=== PATIENT | male | born 1940 | race Caucasian/White ===

== ENCOUNTER 2017-03-29 09:35 | Outpatient (CLI) | payer MEDICARE, OTHER ==
--- NOTE | 2017-03-29 12:57 | XRAY Report ---
DATE OF SERVICE: 03/29/2017 THREE VIEW RIGHT SHOULDER: 03/29/2017 CLINICAL INDICATION: Lateral pain. FINDINGS: Internal and external rotational views and a scapular Y view of the right shoulder demonstrate no evidence of fracture or dislocation. The joint spaces are preserved. No radiopaque foreign body is seen in the soft tissues. IMPRESSION: NORMAL RIGHT SHOULDER. TD: 03/29/2017 13:55
== END 2017-03-29 09:36 | disposition home or self-care (01) ==
LOC: DI 09:35
PROVIDERS: ATTEND Family Medicine
DX: M25.511 Pain in right shoulder (principal)

== ENCOUNTER 2017-04-06 14:42 | Outpatient (CLI) | payer MEDICARE, OTHER ==
--- NOTE | 2017-04-06 20:29 | MRI Report ---
EXAM: RIGHT SHOULDER MRI WITHOUT CONTRAST EXAM DATE: 04/06/2017 03:24 PM. CLINICAL HISTORY: Lifting injury 4 mo ago, no improvement. COMPARISON: None. TECHNIQUE: Multiplanar, multisequence T1-weighted and fluid-sensitive sequences of the shoulder witho ut contrast. Other: None. FINDINGS: Acromioclavicular Region: The acromion is type II. AC joint is moderate to severely arthritic. Small AC joint effusion. The coracoacromial and coracoclavicular ligaments are intact. Trace amount of burs al fluid. Glenohumeral Region: No subluxation. No effusion or loose bodies. The articular cartilage is unremark able. The glenohumeral ligaments and joint capsule are unremarkable. Bone Marrow: No fracture, marrow edema or bone lesions. Labrum: There is a prominent Jeanette variant, no labral pathology. Musculature/Rotator Cuff: Undersurface partial thickness tear distal supraspinatus involves about 90% of the overall tendon thickness. This is about 12 x 12 mm from front to back and side to side. There is also a second area of undersurface partial thickness tearing of the anterior fibers of the supras pinatus involving about 50% of the undersurface thickness, measuring about 6 x 7 mm. No proximal musc ular edema or fatty atrophy. Biceps Tendon: Long head of the biceps tendon is perched at the medial border of the superior aspect of the bicipital groove. Some type I signal change is noted. No vertical split or full-thickness flui d-filled gaps. Other: The subcutaneous tissues are unremarkable. IMPRESSION: 1. Type II unipartite undersurface osseous acromion shape. AC joint is moderately to severely arthrit ic. Small AC joint effusion. Trace amount of bursal fluid. 2. Prominent Jeanette variant, no labral pathology. 3. Undersurface partial-thickness tear involves about 90% of the mid portion of the supraspinatus ten don thickness. Also of note, there is a second area of undersurface partial-thickness tearing involvi ng about 50% of the undersurface distal anterior attachment. Remainder the rotator cuff appears other becerra unremarkable. No proximal muscular edema or fatty atrophy. 4. Long head of biceps tendon is perched at the medial border of the bicipital groove with some type I signal. [facility] MUSCULOSKELETAL RADIOLOGY SECTION Referring Provider Line: [phone] SITE ID: [id number]
== END 2017-04-06 14:43 | disposition home or self-care (01) ==
LOC: DI 14:42
PROVIDERS: ATTEND Family Medicine
DX: M75.101 Unspecified rotator cuff tear or rupture of right shoulder, not specified as traumatic (principal); M19.011 Primary osteoarthritis, right shoulder; M25.411 Effusion, right shoulder

== ENCOUNTER 2017-10-18 08:19 | Outpatient (CLI) | payer MEDICARE, OTHER ==
[2017-10-18 12:00] LABS: ALBUMIN 4.4 g/dL (3.2-5.5); ALBUMIN/GLOBULIN RATIO 1.4 (1.0-2.2); ALKALINE PHOSPHATASE 53 IU/L (42-121); ALT ALANINE AMINOTRANSFERASE 24 IU/L (10-60); AMYLASE 62 U/L (28-100); AST ASPARTATE AMINOTRANSFERASE 22 IU/L (10-42); BILIRUBIN,TOTAL 0.8 mg/dL (0.2-1.0); BUN - BLOOD UREA NITROGEN 21 mg/dL (6-20); CALCIUM 9.5 mg/dL (8.5-10.3); CARBON DIOXIDE - CO2 29 mmol/L (21-32); CHLORIDE 105 mmol/L (101-111); CREATININE 0.9 mg/dL (0.6-1.2); GFR - MDRD 82 (>89); GLUCOSE 118 mg/dL (70-100); SODIUM 139 mmol/L (135-145); TOTAL PROTEIN 7.5 g/dL (6.7-8.2)
[2017-10-18 12:58] LABS: CRP - C-REACTIVE PROTEIN < 1.0 mg/dL (0-1.0)
== END 2017-10-18 08:20 | disposition home or self-care (01) ==
LOC: LAB.F 08:19
PROVIDERS: ATTEND Family Medicine
DX: E03.9 Hypothyroidism, unspecified (principal); R63.4 Abnormal weight loss
CPT/HCPCS: 36415; 80053; 82150; 83615; 86140; G0103; 84153

== ENCOUNTER 2017-10-19 06:11 | Outpatient (CLI) | payer MEDICARE, OTHER ==
[2017-10-19] MEDS ORDERED: IOPAMIDOL-300 100 ML VIAL ONE (06:17)
[2017-10-19] MEDS ORDERED: IOPAMIDOL-300 50 ML VIAL ONE (06:18)
[2017-10-19] MEDS ORDERED: IOPAMIDOL-300 100 ML VIAL IVP ONE (10:46)
[2017-10-19] MEDS ORDERED: IOPAMIDOL-300 50 ML VIAL PO ONE (10:46)
--- NOTE | 2017-10-19 14:40 | CT Report ---
Procedure Date: 10/19/2017 Accession Number: [id number] / [id number] Procedure: CT - Abdomen/Pelvis W/ CPT Code: FULL RESULT: EXAM: CT ABDOMEN AND PELVIS EXAM DATE: 10/19/2017 07:49 AM. CLINICAL HISTORY: UNSPECIFIED ABDOMINAL PAIN,ABNORMAL WEIGHT LOSS. COMPARISONS: None. TECHNIQUE: Routine helical CT imaging was performed through the abdomen and pelvis. IV contrast: ISOVUE 300 100mL. Enteric contrast: No. Reconstructions: Coronal and sagittal. In accordance with CT protocol optimization, one or more of the following dose reduction techniques were utilized for this exam: automated exposure control, adjustment of mA and/or KV based on patient size, or use of iterative reconstructive technique. FINDINGS: Lung Bases: Unremarkable. Liver: Scattered subcentimeter low-attenuation lesions, too small to accurately characterize, most likely cysts. No masses. Gallbladder/Bile Ducts: Unremarkable. Spleen: Normal. Pancreas: Normal. Adrenal Glands: Unremarkable Kidneys: no masses or hydronephrosis. Peritoneal Cavity/Bowel: no free fluid, free air or adenopathy. No masses or acute inflammatory process. Minor sigmoid diverticulosis without diverticulitis. Pelvic Organs: the bladder is unremarkable. Prostate is prominent in size with elevation of the bladder base. Vasculature: No aneurysms or other significant abnormality. Bones: No significant abnormality. Degenerative change. Other: None. IMPRESSION: 1. Prominent prostate 2. Diverticulosis without diverticulitis 3. Negative solid abdominal viscera. 4. No explanation for weight loss seen.
== END 2017-10-19 06:12 | disposition home or self-care (01) ==
LOC: DI 06:11
PROVIDERS: ATTEND Family Medicine
DX: R10.9 Unspecified abdominal pain (principal); R63.4 Abnormal weight loss
CPT/HCPCS: 74177; Q9967

== ENCOUNTER 2019-05-10 07:03 | Outpatient (CLI) | payer MEDICARE, OTHER ==
[2019-05-10 11:37] LABS: ALBUMIN 4.3 g/dL (3.2-5.5); ALBUMIN/GLOBULIN RATIO 1.3 (1.0-2.2); ALKALINE PHOSPHATASE 55 IU/L (42-121); ALT ALANINE AMINOTRANSFERASE 24 IU/L (10-60); AST ASPARTATE AMINOTRANSFERASE 23 IU/L (10-42); BILIRUBIN,TOTAL 0.8 mg/dL (0.2-1.0); BUN - BLOOD UREA NITROGEN 19 mg/dL (6-20); CALCIUM 9.1 mg/dL (8.5-10.3); CARBON DIOXIDE - CO2 28 mmol/L (21-32); CHLORIDE 102 mmol/L (101-111); CHOL/HDL RATIO 3.3 (<5.0); CHOLESTEROL 194 mg/dL; CREATININE 0.8 mg/dL (0.6-1.2); GFR - MDRD 94 (>89); GLUCOSE 113 mg/dL (70-100); HDL CHOLESTEROL 58 mg/dL; LDL CHOLESTEROL,CALCULATED 123 mg/dL; LDL/HDL RATIO 2.1 (<3.6); SODIUM 136 mmol/L (135-145); TOTAL PROTEIN 7.5 g/dL (6.7-8.2); VLDL CHOLESTEROL 13 mg/dL
[2019-05-10 11:42] LABS: CREATININE,URINE 87.7 mg/dL; MICROALBUM/CREATININE RATIO,UR 2.3 ug/mg (<30.0); MICROALBUMIN,URINE 0.2 mg/dL (0-300.0)
[2019-05-10 11:43] LABS: HB2 TOTAL 15.1 g/dL; HEMOGLOBIN A1C 0.59 g/dL; HEMOGLOBIN A1C % 5.7 % (4.6-6.2)
== END 2019-05-10 07:04 | disposition home or self-care (01) ==
LOC: LAB.S 07:03
PROVIDERS: ATTEND Family Medicine
DX: E11.9 Type 2 diabetes mellitus without complications (principal); E78.5 Hyperlipidemia, unspecified; E03.9 Hypothyroidism, unspecified
CPT/HCPCS: 36415; 80053; 80061; 82043; 82570; 83036; 83721; 84443

== ENCOUNTER 2022-05-23 10:21 | Emergency (ER) | payer MEDICARE, OTHER ==
--- NOTE | 2022-05-23 11:48 | ED Physician Documentation ---
PD HPI MALE - Stated complaint Stated Complaint: MALE - Chief complaint Chief Complaint: Abd Pain - History obtained from History obtained from: Patient, EMS - Additional information Additional information: Pt comes to the ED for CC of decreased urination. He is POD#3 after TURP at , and has been doing well. He was discharged yesterday, and urinated several times, but noticed his urination decrease over the course of the evening, and has not urinated more than a dribble overnight, despite drinking water. He denies any abdominal discomfort. He states he does not really have the urge to go. The pt states he called his urologist, who told him to come get checked out, and if needed, place an 18-Fr [place] and follow up with urologist tomorrow. Pt states that for some reason, since getting here, he has had the urge to urinate, and has been able to go. Nurse reports initial bladder scan of 375 cc. Pt is otherwise feeling well. No N/V, F/C. PD PAST MEDICAL HISTORY - Allergies Allergies/Adverse Reactions: Allergies Allergy/AdvReac Type Severity Reaction Status Date / Time No Known Drug Allergies Allergy Verified 05/23/22 10:28 PD ED PE NORMAL - Vitals Vital signs reviewed: Yes - General General: Alert and oriented X 3, No acute distress, Well developed/nourished - HEENT HEENT: Atraumatic, PERRL, EOMI, Moist mucous membranes - Neck Neck: Supple, no meningeal sign - Respiratory Respiratory: No respiratory distress - Abdomen Abdomen: Soft, Non tender, Non distended - Derm Derm: Normal color, Warm and dry, No rash - Extremities Extremities: No deformity - Neuro Neuro: Alert and oriented X 3 - Psych Psych: Normal mood, Normal affect Results - Vitals Vitals: Oxygen O2 Source Room air PD Medical Decision Making - ED course Complexity details: reviewed results, re-evaluated patient, considered differential, d/w patient ED course: The pt's repeat bladder scan after urinating the first time showed less than 200cc in the bladder, and pt was able to urinate several more times in the ED. He denied dysuria. The pt opted not have the catheter put in at this time, with the understanding that if he retains urine again to the point of discomfort, he will need to come back in and be re-evaluated. The pt is agreeable to this plan. Departure - Departure Disposition: 01 Home, Self Care Clinical Impression: Postoperative urinary retention Condition: Stable Instructions: ED Retention Urinary Male Comments: You had 375 mL of urine in your bladder to start with, and now, you are down to about 100. Since you are able to urinate repeatedly in the emergency department, the catheter does not necessarily need to be placed at this time. However, if you begin having increasing discomfort and are unable to urinate, then you will need to come back for reevaluation and probably have the catheter placed. Please be sure you are drinking 8 to 10 cups of water every day to help flush your bladder and ureter. Please follow-up with your urologist as scheduled. Discharge Date/Time: 05/23/22 12:02
[2022-05-23 12:02] VITALS: BP 148/87
== END 2022-05-23 12:02 | disposition home or self-care (01) ==
LOC: ED 10:21
DX: N99.89 Other postprocedural complications and disorders of genitourinary system (principal); R33.8 Other retention of urine
CPT/HCPCS: 51798; 99281; 99283

== ENCOUNTER 2022-06-03 13:58 | Emergency (ER) | payer MEDICARE, OTHER ==
[2022-06-03 14:11] VITALS: BP 150/87
--- NOTE | 2022-06-03 14:54 | ED Physician Documentation ---
History of Present Illness - Stated complaint Stated Complaint: MALE - Chief complaint Chief Complaint: Abd Pain - History obtained from History obtained from: Patient - History of Present Illness Timing: Today Pain level max: 0 Pain level now: 0 - Additonal information Additional information: 82-year-old male who presents to the emergency department stating that he had a TURP performed 2 weeks ago. He states decreased urine output today. He does not have any abdominal or pelvic pain. Does not feel the urge to urinate. He is concerned about potential obstruction. No fevers. No chills. 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) - Allergies Allergies/Adverse Reactions: Allergies Allergy/AdvReac Type Severity Reaction Status Date / Time No Known Drug Allergies Allergy Verified 06/03/22 14:11 - Living Situation Living Situation: reports: With family Living Arrangement: reports: At home PD ED PE NORMAL - Vitals Vital signs reviewed: Yes - General General: Alert and oriented X 3, No acute distress - HEENT HEENT: Moist mucous membranes - Neck Neck: Supple, no meningeal sign - Cardiac Cardiac: RRR - Respiratory Respiratory: No respiratory distress, Clear bilaterally - Abdomen Abdomen: Soft, Non tender, Non distended - Derm Derm: Warm and dry - Neuro Neuro: Alert and oriented X 3 Results - Vitals Vitals: Vital Signs - 24 hr 06/03/22 14:08 Temperature 36.6 C Heart Rate 82 Respiratory 16 Rate Blood Pressure 150/87 H O2 Saturation 98 Oxygen O2 Source Room air PD Medical Decision Making - ED course Complexity details: considered differential, d/w patient ED course: Patient is able to void in the emergency department. Postvoid residual is minimal. No evidence of obstruction. Not having any symptoms consistent with infection. We will have him follow-up with his urologist for further care. Patient counseled regarding signs and symptoms for which I believe and urgent re-evaluation would be necessary. Patient with good understanding of and agreement to plan and is comfortable going home at this time This document was made in part using voice recognition software. While efforts are made to proofread this document, sound alike and grammatical errors may occur. Departure - Departure Disposition: Home, Self Care Clinical Impression: Encounter for medical screening examination Condition: Good Instructions: TURP, TURP Home Recover Follow-Up: your,doctor in 1 week [Other] Comments: There is no evidence of bladder obstruction today. Please continue to drink water at home and follow-up with your urologist. Return if you worsen Discharge Date/Time: 06/03/22 15:09
== END 2022-06-03 15:09 | disposition home or self-care (01) ==
LOC: ED 13:58
DX: R33.9 Retention of urine, unspecified (principal)
CPT/HCPCS: 51798; 99282; 99283

== ENCOUNTER 2022-11-15 07:29 | Outpatient (CLI) | payer MEDICARE, OTHER ==
[2022-11-15 07:55] LABS: ALBUMIN 4.3 g/dL (3.2-5.5); ALBUMIN/GLOBULIN RATIO 1.4 (1.0-2.2); ALKALINE PHOSPHATASE 59 IU/L (42-121); ALT ALANINE AMINOTRANSFERASE 16 IU/L (10-60); AST ASPARTATE AMINOTRANSFERASE 16 IU/L (10-42); BILIRUBIN,TOTAL 0.7 mg/dL (0.2-1.0); BUN - BLOOD UREA NITROGEN 20 mg/dL (6-20); CALCIUM 9.7 mg/dL (8.5-10.3); CARBON DIOXIDE - CO2 29 mmol/L (21-32); CHLORIDE 106 mmol/L (101-111); CHOL/HDL RATIO 2.6 (<5.0); CHOLESTEROL 156 mg/dL; CREATININE 0.9 mg/dL (0.6-1.3); GFR - MDRD 81 (>89); GLUCOSE 120 mg/dL (74-104); HDL CHOLESTEROL 60 mg/dL; LDL CHOLESTEROL,CALCULATED 80 mg/dL; LDL/HDL RATIO 1.3 (<3.6); POTASSIUM 4.1 mmol/L (3.5-4.5); SODIUM 139 mmol/L (135-145); TOTAL PROTEIN 7.3 g/dL (6.4-8.9); TRIGLYCERIDES 79 mg/dL (48-352); VLDL CHOLESTEROL 16 mg/dL
[2022-11-15 08:08] LABS: THYROID STIMULATING HORMONE 1.48 uIU/mL (0.34-5.60)
[2022-11-15 11:14] LABS: ESTIMATED AVERAGE GLUCOSE 114 mg/dL (70-100); HEMOGLOBIN A1c% 5.6 % (4.27-6.07)
== END 2022-11-15 07:30 | disposition home or self-care (01) ==
LOC: LAB 07:29
PROVIDERS: ATTEND Family Medicine
DX: E03.9 Hypothyroidism, unspecified (principal); R73.03 Prediabetes
CPT/HCPCS: 36415; 80053; 80061; 83036; 83721; 84443

== ENCOUNTER 2023-05-09 10:31 | Emergency (ER) | payer MEDICARE, OTHER ==
[2023-05-09 10:42] VITALS: BP 163/98; O2SAT 98
[2023-05-09 11:00] LABS: BILIRUBIN,URINE NEGATIVE (NEGATIVE); GLUCOSE, URINE (UA) NEGATIVE (NEGATIVE); KETONES,URINE (UA) NEGATIVE (NEGATIVE); LEUKOCYTE ESTERASE, URINE NEGATIVE (NEGATIVE); NITRITE,URINE NEGATIVE (NEGATIVE); OCCULT BLOOD,URINE NEGATIVE (NEGATIVE); PROTEIN,URINE NEGATIVE (NEGATIVE); UROBILINOGEN,URINE 0.2 (NORMAL) E.U./dL (NORMAL)
[2023-05-09 11:02] LABS: CLARITY,URINE CLEAR (CLEAR)
--- NOTE | 2023-05-09 12:13 | ED Physician Documentation ---
History of Present Illness - Stated complaint Stated Complaint: - Chief complaint Chief Complaint: UTI - Additonal information Additional information: 83-year-old male with history of recent TURP at [facility] presents emergency department for very mild dull aching sensation that he is experiencing when voiding. He denies any abdominal pain no CVA tenderness no fevers or chills he says it is hard to describe there is no dysuria no burning sensation when he voids he says the way he would describe it is a pressure sensation and on a scale of 1-10 he would describe it as about a 2. He said he just wanted to have his urine checked to make sure it was not infection. 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) - Present Medications Home Medications: Ambulatory Orders Medication Instructions Recorded Confirmed Atorvastatin [Lipitor] 10 mg PO DAILY 05/09/23 05/09/23 Levothyroxine [Synthroid] 100 mcg PO QDAC 05/09/23 05/09/23 metFORMIN [Glucophage] 500 mg PO DAILY 05/09/23 05/09/23 - Allergies Allergies/Adverse Reactions: Allergies Allergy/AdvReac Type Severity Reaction Status Date / Time No Known Drug Allergies Allergy Verified 05/09/23 10:42 - Social History Does the pt smoke?: No Smoking Status: Never smoker Does the pt drink ETOH?: No Does the pt have substance abuse?: No - Immunizations Immunizations are current?: Yes - POLST Patient has POLST: No PD ED PE NORMAL - Vitals Vital signs reviewed: Yes - General General: Alert and oriented X 3, No acute distress - Abdomen Abdomen: Normal bowel sounds, Soft, Non tender, Non distended, No organomegaly - Back Back: No CVA TTP - Derm Derm: Normal color, Warm and dry, No rash Results - Vitals Vitals: Vital Signs - 24 hr 05/09/23 10:38 Temperature 35.9 C L Heart Rate 63 Respiratory 20 Rate Blood Pressure 163/98 H O2 Saturation 98 Oxygen O2 Source Room air - Labs Labs: Laboratory Tests 05/09/23 10:51 Urine Color LIGHT YELLOW Urine Clarity CLEAR Urine pH 6.0 Ur Specific [place] <=1.005 Urine Protein NEGATIVE Urine Glucose (UA) NEGATIVE Urine Ketones NEGATIVE Urine Occult Blood NEGATIVE Urine Nitrite NEGATIVE Urine Bilirubin NEGATIVE Urine Urobilinogen 0.2 (NORMAL) Ur Leukocyte Esterase NEGATIVE Ur Microscopic Review NOT INDICATED Urine Culture Comments NOT INDICATED PD Medical Decision Making - ED course ED course: Urinalysis was complete he has no leukocytes no nitrates overall very unremark able urinalysis. Patient said that he is reassured from this and declined any further workup medication at this time. I agree I do not believe that there is any further workup that is indicated he was told to follow-up with his urologist with [facility] for further evaluation if the symptoms do not resolve and he was given ER return precautions. Departure - Departure Disposition: 01 Home, Self Care Clinical Impression: Urinary dysfunction Instructions: ED UTI Cystitis Male Comments: We have completed a urinalysis and there are no signs and symptoms of infection at this time. If you continue to have this discomfort I would encourage you to reach out to your urologist with [facility] for further evaluation. if you start to notice any fevers or chills any burning sensation abdominal pain or flank pain please come back to the emergency department for further evaluation. Discharge Date/Time: 05/09/23 12:42
== END 2023-05-09 12:42 | disposition home or self-care (01) ==
LOC: ED 10:31
DX: R30.0 Dysuria (principal); E11.9 Type 2 diabetes mellitus without complications; E03.9 Hypothyroidism, unspecified; E78.00 Pure hypercholesterolemia, unspecified; Z79.84 Long term (current) use of oral hypoglycemic drugs; Z79.899 Other long term (current) drug therapy
CPT/HCPCS: 51798; 81001; 81003; 87086; 99283

== ENCOUNTER 2023-11-16 07:27 | Outpatient (CLI) | payer MEDICARE, OTHER ==
[2023-11-16 08:03] LABS: CHOL/HDL RATIO 2.6 (<5.0); CHOLESTEROL 164 mg/dL; HDL CHOLESTEROL 64 mg/dL; LDL CHOLESTEROL,CALCULATED 82 mg/dL; LDL/HDL RATIO 1.3 (<3.6); TRIGLYCERIDES 91 mg/dL; VLDL CHOLESTEROL 18 mg/dL
[2023-11-16 08:14] LABS: THYROID STIMULATING HORMONE 1.58 uIU/mL (0.34-5.60)
[2023-11-16 08:18] LABS: ALBUMIN 4.2 g/dL (3.2-5.5); ALBUMIN/GLOBULIN RATIO 1.6 (1.0-2.2); ALKALINE PHOSPHATASE 54 IU/L (42-121); ALT ALANINE AMINOTRANSFERASE 15 IU/L (10-60); AST ASPARTATE AMINOTRANSFERASE 14 IU/L (10-42); BILIRUBIN,TOTAL 0.6 mg/dL (0.2-1.0); BUN - BLOOD UREA NITROGEN 20 mg/dL (6-20); CALCIUM 9.5 mg/dL (8.5-10.3); CARBON DIOXIDE - CO2 29 mmol/L (21-32); CHLORIDE 105 mmol/L (101-111); CREATININE 0.9 mg/dL (0.6-1.3); GFR - MDRD 81 (>89); GLUCOSE 110 mg/dL (74-104); POTASSIUM 4.2 mmol/L (3.5-4.5); SODIUM 138 mmol/L (135-145); TOTAL PROTEIN 6.8 g/dL (6.4-8.9)
[2023-11-16 09:51] LABS: ESTIMATED AVERAGE GLUCOSE 111 mg/dL (70-100); HEMOGLOBIN A1c% 5.5 % (4.27-6.07)
== END 2023-11-16 07:28 | disposition home or self-care (01) ==
LOC: LAB 07:27
PROVIDERS: ATTEND Family Medicine
DX: E03.9 Hypothyroidism, unspecified (principal); R73.03 Prediabetes; Z12.5 Encounter for screening for malignant neoplasm of prostate
CPT/HCPCS: 36415; 80053; 80061; 83036; 84443; G0103; 83721; 84153